=== PATIENT | female | born 1995 | race African-American/Black ===

== ENCOUNTER 2021-12-06 17:20 | Emergency (ER) | payer OTHER, SELFPAY ==
[2021-12-06 17:53] VITALS: BP 143/77; PULSE 90; RESP 16; TEMP 36.4; O2SAT 98; BMI 30.2
--- NOTE | 2021-12-06 18:39 | DI.RAD.S_ITS ---
PROCEDURE: XR CHEST 2V INDICATIONS: Chest pain TECHNIQUE: 2 views of the chest were acquired. COMPARISON: None. FINDINGS: Surgical changes and devices: None. Lungs and pleura: Lungs are clear. No pleural effusions or pneumothorax. Mediastinum: Mediastinal contours are normal. Heart size is normal. Bones and chest wall: No suspicious bony abnormalities. Soft tissues appear unremarkable. IMPRESSION: No acute cardiopulmonary disease process. Dictated by: Sherry Manuel MD, PhD on 12/06/2021 at 17:49 Approved by: Sherry Manuel MD, PhD on 12/06/2021 at 17:50
[2021-12-06] MEDS: KETOROLAC 30 MG/ML VIAL 15 MG IM (19:00)
--- NOTE | 2021-12-06 19:00 | ED.CHESTPAIN ---
HPI - Chest Pain <Suraj Butcher PA-C - Last Filed: 12/06/21 19:58> General Chief Complaint: Chest Pain Stated Complaint: chest pains Time Seen by Provider: 12/06/21 18:20 Source: patient Mode of arrival: Ambulatory History of Present Illness HPI narrative: Patient is a 26-year-old female presenting to the emergency department today for an evaluation intermittent chest pain. Patient states that she has experienced chest pain for approximately 1 week, noting that she has a constant ache in her chest with occasional sharp sensations. Additionally, patient states that the chest pain occasionally radiates to her right shoulder. She explains that she has recently started a new exercise routine and believes that her pain began shortly after increasing her physical activity. Patient states that the pain is worse when she is pressing on her sternum. Patient denies fever, chills, cough, shortness of breath, nausea, vomiting, diarrhea, abdominal pain, dysuria, hematuria, diaphoresis, jaw pain, numbness or tingling in the upper extremities, or any other concerning symptoms. No further concerns are voiced at this time. Related Data Home Medications Medication Instructions Recorded Confirmed No Known Home Medications 12/06/21 12/06/21 Allergies Allergy/AdvReac Type Severity Reaction Status Date / Time sulfamethoxazole Allergy Hives Verified 12/06/21 17:57 [From ] trimethoprim [From ] Allergy Hives Verified 12/06/21 17:57 Review of Systems <Suraj Butcher PA-C - Last Filed: 12/06/21 19:58> Constitutional Constitutional: Denies chills, Denies fatigue, Denies fever(s), Denies frequent falls, Denies lethargy and Denies weakness Eyes Eyes: Denies loss of vision ENT Ears, Nose, Mouth, and Throat: Denies change in voice, Denies dizziness, Denies neck pain, Denies sore throat and Denies throat swelling Cardiovascular Cardiovascular: Reports chest pain, Denies irregular heart rhythm, Denies lightheadedness, Denies palpitations, Denies dyspnea, Denies dyspnea on exertion and Denies orthopnea Respiratory Respiratory: Denies cough, Denies dyspnea, Denies dyspnea on exertion and Denies wheezing Gastrointestinal Gastrointestinal: Denies abdominal pain, Denies change in bowel habits, Denies diarrhea, Denies nausea and Denies vomiting Genitourinary Genitourinary: Denies hematuria, Denies flank pain, Denies urinary incontinence and Denies urinary urgency Musculoskeletal Musculoskeletal: Denies back pain, Denies muscle weakness, Denies neck pain, Denies numbness and Denies tingling Integumentary/Breasts Skin/Breast: Denies pruritus, Denies erythema, Denies rash and Denies wounds Neurologic Neurologic: Denies behavioral changes, Denies confusion, Denies dizziness, Denies frequent falls, Denies loss of vision, Denies numbness, Denies tingling and Denies weakness Psychiatric Psychiatric: Denies behavioral changes and Denies confusion Endocrine Endocrine: Denies fatigue and Denies palpitations Allergic/Immunologic Allergic/Immunologic: Denies throat swelling and Denies wheezing Patient History <Suraj Butcher PA-C - Last Filed: 12/06/21 19:58> Social History Smoking Status: Never smoker Smoking Status: Never smoker alcohol intake frequency: other Substance Use Type: does not use Exam <Suraj Butcher PA-C - Last Filed: 12/06/21 19:58> Narrative Exam Narrative: GENERAL: 26 year old patient appears stated age. Well-developed patient, in no acute distress. HEAD: Atraumatic. Normocephalic. EYES: Pupils equal round and reactive. Extraocular motions intact. No scleral icterus. No injection or drainage. ENT: Nose without bleeding, purulent drainage. Throat without erythema, tonsillar hypertrophy or exudate. Airway patent. NECK: Trachea midline. Non tender CARDIOVASCULAR: Regular rate and rhythm without murmurs, gallops, or rubs. RESPIRATORY: Clear to auscultation. Breath sounds equal bilaterally. No wheezes, rales, or rhonchi. GASTROINTESTINAL: Abdomen soft, non-tender, nondistended. EXTREMITIES: No edema or joint tenderness. MUSCULOSKELETAL: Tenderness to palpation noted over the sternum. No crepitus or deformity noted. BACK: Nontender without deformity or crepitance. No flank tenderness. NEURO: AOx3. SKIN: No rash or erythema of visible areas Initial Vital Signs Initial Vital Signs: Vital Signs Temperature 97.6 F 12/06/21 17:53 Pulse Rate 90 12/06/21 17:53 Respiratory Rate 16 12/06/21 17:53 Blood Pressure 143/77 H 12/06/21 17:53 Pulse Oximetry 98 12/06/21 17:53 <DO Scott Marquez Last Filed: 12/07/21 00:52> Initial Vital Signs Initial Vital Signs: Vital Signs Temperature 97.6 F 12/06/21 17:53 Pulse Rate 90 12/06/21 17:53 Respiratory Rate 16 12/06/21 17:53 Blood Pressure 143/77 H 12/06/21 17:53 Pulse Oximetry 98 12/06/21 17:53 Course <Suraj Butcher PA-C - Last Filed: 12/06/21 19:58> Course Course Narrative: Chest x-ray, EKG obtained. Intramuscular Toradol administered. Orders Ordered: ED Orders 12/06/21 17:57 EKG-12 Lead Stat 12/06/21 18:39 XR chest 2V Stat Discontinued Medications Ketorolac Tromethamine (Ketorolac 30 Mg/Ml Vial) 15 mg IM NOW ONE Stop: 12/06/21 18:41 Last Admin: 12/06/21 19:00 Dose: 15 mg Documented by: NICOLEE Vital Signs Vital signs: Vital Signs - 8 hr 12/06/21 17:53 12/06/21 19:40 Temperature 97.6 F Pulse Rate 90 69 Respiratory Rate 16 17 Blood Pressure 143/77 H 117/73 Pulse Oximetry 98 98 <DO Scott Marquez Last Filed: 12/07/21 00:52> Orders Ordered: ED Orders 12/06/21 17:57 EKG-12 Lead Stat 12/06/21 18:39 XR chest 2V Stat Discontinued Medications Ketorolac Tromethamine (Ketorolac 30 Mg/Ml Vial) 15 mg IM NOW ONE Stop: 12/06/21 18:41 Last Admin: 12/06/21 19:00 Dose: 15 mg Documented by: RSTONE Vital Signs Vital signs: Vital Signs - 8 hr 12/06/21 17:53 12/06/21 19:40 Temperature 97.6 F Pulse Rate 90 69 Respiratory Rate 16 17 Blood Pressure 143/77 H 117/73 Pulse Oximetry 98 98 MDM - Chest Pain <JEOVANY Franco Last Filed: 12/06/21 19:58> Imaging Data Chest x-ray: Radiologist's Impression: PROCEDURE:? XR CHEST 2V ? INDICATIONS:? Chest pain ? TECHNIQUE:? 2 views of the chest were acquired.? ? COMPARISON:? None. ? FINDINGS:? ? Surgical changes and devices:? None.? ? Lungs and pleura:? Lungs are clear.? No pleural effusions or pneumothorax.? ? Mediastinum:? Mediastinal contours are normal.? Heart size is normal.? ? Bones and chest wall:? No suspicious bony abnormalities.? Soft tissues appear unremarkable.? ? IMPRESSION:? No acute cardiopulmonary disease process. ? ? Dictated by: Sherry Manuel MD, PhD on 12/06/2021 at 17:49 ? ? Approved by: Sherry Manuel MD, PhD on 12/06/2021 at 17:50 ? ECG Data Interpretation: 81 beats per minute, DE interval of 164 ms, normal sinus rhythm MDM Narrative Medical decision making narrative: To consider musculoskeletal chest pain versus costochondritis versus myocardial infarction versus acute coronary syndrome versus pneumonia. Overall physical examination, history, and imaging obtained in the emergency department today are reassuring. Discussed with patient that considering her pain is reproducible and is worse with increased activity the likelihood is high that she is experiencing a musculoskeletal chest pain. I informed the patient that her chest x-ray did not show any acute abnormality and that her EKG returned without any acute abnormality. Patient expresses understanding. Instructed patient to take Tylenol and ibuprofen as needed to manage her pain. Strict return precautions were discussed with the patient prior to discharge. At this time patient is stable and ready for discharge. Discharge Plan Departure Patient Disposition: Home Clinical Impression: Chest pain Instructions: DI for Chest Pain Activity Restrictions/Additional Instructions: *You have been diagnosed with chest pain *What to do: *Please continue to take your regular medications as directed. [ ] New medication prescriptions sent to your pharmacy: [ ] [ ] New medication written as a paper prescription [X] No new medications given *Please follow up with your primary care provider in 2-3 days, call for an appointment. Let them know you were seen in the Emergency Department and that we ask that you be seen in follow up. We will electronically transmit a record of today's note if your PCP is in our system *If you do not have a primary care provider please contact the [facility] Resource line at [phone]. They will ask some questions about your medical history and help get you set up with a doctor in the community. *Return to Emergency Department if you should have any new, worsening or concerning symptoms, such as fever greater than 101 F, shaking chills, worsening pain, persistent vomiting or other bothersome symptoms. Prescriptions: No Action No Known Home Medications 0RF <Dianelys Owens DO - Last Filed: 12/07/21 00:52> Cosign ED Attending Bill Attestation: I was immediately available in the department for consultation. Documentation has been reviewed. I agree with assessment and plan.
[2021-12-06 19:40] VITALS: BP 117/73; PULSE 69; RESP 17; O2SAT 98
== END 2021-12-06 19:41 | disposition home or self-care (01) ==
PROVIDERS: Emergency Provider Physician Assistant
DX: R07.89 Other chest pain (principal)
CPT/HCPCS: 71046; 93005; 93010; 96372; 99284; J1885